=== PATIENT | female | born 1960 | race Two or more races ===

== ENCOUNTER 2018-01-15 10:17 | Outpatient (CLI) | payer OTHER ==
[~2018-01-15] VITALS: Ht 170.2 cm; Wt 74.8 kg
[2018-01-15] MEDS ORDERED: LIPO-FLAVONOID1 EACH PO (11:35)
== END 2018-01-15 10:30 | disposition home or self-care (01) ==
LOC: OFIC 805 10:17
DX: R42 Dizziness and giddiness (principal)